=== PATIENT | male | born 1990 | race Caucasian/White ===

== ENCOUNTER 2018-06-05 08:45 | Day surgery (SDC) | payer OTHER ==
[~2018-06-05 08:45] MED LIST: Lactated Ringers 1,000 ML IV SCH; Sodium Chloride 0.9% 10 ML Syringe FLUSH PRN
[2018-06-05] MEDS ORDERED: Propofol 200 MG/20 ML SDV IV ONE (10:00)
--- NOTE | 2018-06-05 10:38 | PCM.OPNOTE ---
- General Post-Op/Procedure Note Date of Surgery/Procedure: 06/05/18 Operative Procedure(s): c scope Findings: descending colon polyp extopic varix Pre Op Diagnosis: bleeding internal hemorrhoids Post-Op Diagnosis: descending colon polyp. ectopic varix Anesthesia Technique: MAC Primary Surgeon: Tez Liu Anesthesia Provider: Sanjiv Villalobos Pathology: colon polyp Complications: None Condition: Good Free Text/Narrative:: see dictation
--- NOTE | 2018-06-05 11:22 | OR ---
DATE OF OPERATION: 06/05/2018 SURGEON: Tez Liu MD PROCEDURES PERFORMED: Colonoscopy with cold forceps biopsy. PREOPERATIVE DIAGNOSIS: History of bleeding internal hemorrhoids. POSTOPERATIVE DIAGNOSIS: Descending colon polyp. INDICATIONS FOR PROCEDURE: This is a 27-year-old white male who has been treated for hemorrhoids. He still has some occasional bleeding, so we recommended a colonoscopy to ensure that we were not missing any further issues. DESCRIPTION OF PROCEDURE: After an excellent IV sedation was administered, digital rectal exam was performed. No marked abnormality was noted. The flexible colonoscope was inserted and advanced to the cecum without difficulty. The prep was excellent. The following findings were noted. Ascending colon, unremarkable. Transverse colon, unremarkable. Descending colon, small polyp, biopsied with cold biopsy forceps and sent for permanent. Sigmoid, unremarkable. Rectum and anus, he does have some prominent blood vessels in the area of the anus, most suggestive of varices. Colon was deflated. The scope was removed. The patient tolerated the procedure well and was taken to recovery room in a good condition. /[id number] /MODL
[2018-06-05 11:40] VITALS: BP 112/52
== END 2018-06-05 11:33 | disposition home or self-care (01) ==
LOC: FB.SDS 08:45
PROVIDERS: ATTEND Surgery
DX: K64.8 Other hemorrhoids (principal); K63.5 Polyp of colon; K62.89 Other specified diseases of anus and rectum; Z87.19 Personal history of other diseases of the digestive system; Z79.899 Other long term (current) drug therapy
CPT/HCPCS: 36415; 45380; 80053; 88305; J2704; J7120; 76705